=== PATIENT | male | born 1990 | race Caucasian/White ===

== ENCOUNTER 2017-05-19 17:59 | Emergency (ER) | payer SELFPAY ==
--- NOTE | 2017-05-19 21:07 | Emergency Room Report ---
History of Present Illness General Chief Complaint: To Be Triaged Present Illness HPI Pt Left the Department prior to Triage, was not seen by a provider. Medical Decision Making PA Attestation Dr. Blevins is my supervising Physician whom patient management has been discussed with. ER Course Pt Left the Department prior to Triage, was not seen by a provider. Disposition: LEFT W/OUT BEING SEEN Condition: Unknown Referrals: NOT CHOSEN IPA/,REFERRING (PCP) Tianna Lorenzo May 19, 2017 21:07
== END 2017-05-19 18:23 | disposition left against medical advice (07) ==
LOC: EMR 18:05
DX: S09.90XA Unspecified injury of head, initial encounter (principal); Z53.21 Procedure and treatment not carried out due to patient leaving prior to being seen by health care provider

== ENCOUNTER 2017-06-04 01:35 | Emergency (ER) | payer OTHER ==
[~2017-06-04] VITALS: Ht 172.7 cm; Wt 68.0 kg
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
[2017-06-04 02:20] VITALS: BP 118/75
[2017-06-04] MEDS ORDERED: IBUPROFEN600 MG ORAL (02:31)
[2017-06-04 02:43] VITALS: BP 118/75
--- NOTE | 2017-06-04 08:43 | Diagnostic Imaging Report ---
Indications: Trauma to left second finger, pain Technique: 3 views left second finger. Findings: Comparison: None Soft tissues are mildly swollen. No fracture, dislocation, joint space widening , soft tissue foreign body/gas, or other acute changes are identified. IMPRESSION: Soft tissue swelling, nonspecific Otherwise no evidence of acute injury to the left second finger.
== END 2017-06-04 02:43 | disposition home or self-care (01) ==
LOC: EMR 02:15
DX: S63.631A Sprain of interphalangeal joint of left index finger, initial encounter (principal); Y04.2XXA Assault by strike against or bumped into by another person, initial encounter; Y92.89 Other specified places as the place of occurrence of the external cause
CPT/HCPCS: 29130; 99283

== ENCOUNTER 2017-09-03 16:58 | Emergency (ER) | payer OTHER ==
[~2017-09-03] VITALS: Ht 175.3 cm; Wt 65.8 kg
[~2017-09-03 16:58] MED LIST: IBUPROFEN600 MG ORAL
[2017-09-03 17:03] VITALS: BP 122/77
[2017-09-03] MEDS ORDERED: BACITRACIN-P28.35 GM TP (17:30)
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
[2017-09-03 17:57] VITALS: BP 122/77
== END 2017-09-03 17:59 | disposition home or self-care (01) ==
LOC: EMR 17:28
DX: S61.214A Laceration without foreign body of right ring finger without damage to nail, initial encounter (principal); W45.8XXA Other foreign body or object entering through skin, initial encounter; Y92.89 Other specified places as the place of occurrence of the external cause
CPT/HCPCS: 12001; 29130; 99284; Z7502